=== PATIENT | male | born 1985 | race Caucasian/White ===

== ENCOUNTER 2016-06-24 19:17 | Emergency (ER) | payer MEDICAID ==
[~2016-06-24] VITALS: Ht 185.4 cm; Wt 78.0 kg
[~2016-06-24 19:17] MED LIST: AMOX500T PO; DIFL500T PO; Z.0.NO CURRENT MEDS
[2016-06-24 19:39] VITALS: BP 139/72; PULSE 79; RESP 16; TEMP 98.8; O2SAT 97
--- NOTE | 2016-06-24 19:41 | PD ---
HPI Chief Complaint: Psychiatric Symptoms Time Seen by Provider: 19:28 Travel History International Travel<30 days: No Contact w/Intl Traveler<30days: No Traveled to known affect area: No History of Present Illness HPI 30-year-old male was Syed acted and brought in for evaluation. Patient was threatening suicidal to his via text this afternoon. Patient states that he did it in anger. Patient states that he did not mean to threaten suicide. Patient denies any depression. Patient denies headache. Patient denies any chest pain or shortness of breath. Patient denies abdominal pain. Patient denies any nausea vomiting diarrhea. Patient denies any fever chills. Patient has history of abuse of Dilaudid IV. Last IV Dilaudid was 3 hours prior coming to the emergency room. Patient denies any other drugs or alcohol abuse. PFSH Past Medical History Depression: Yes Diminished Hearing: No Headaches: Yes (URIBE WITH BLURRED VISION) Past Surgical History Surgical History: No Previous Surgery Neurologic Surgery: Yes (LT UPPER EXTREMITY NERVE REPAIR) Social History Alcohol Use: No Tobacco Use: Yes (1PPD) Substance Use: Yes (dilaudid) Allergies-Medications (Allergen,Severity, Reaction): Coded Allergies: Codeine (Verified Allergy, Mild, 03/09/11) Reported Meds & Prescriptions Reported Meds & Active Scripts Active Dolobid (Diflunisal) 500 Mg Tab 500 Mg PO BIDPRN FOR PAIN Amoxil (Amoxicillin) 500 Mg Cap 1 Tab PO TID 10 Days Reported No Current Meds (Miscellaneous Medication) Misc Review of Systems General / Constitutional: No: Fever Eyes: No: Visual changes HENT: No: Headaches Cardiovascular: No: Chest Pain or Discomfort Respiratory: No: Shortness of Breath Gastrointestinal: No: Abdominal Pain Genitourinary: No: Dysuria Musculoskeletal: No: Pain Skin: No Rash Neurologic: No: Weakness Psychiatric: No: Depression Endocrine: No: Polydipsia Hematologic/Lymphatic: No: Easy Bruising Physical Exam Narrative GENERAL: Well-nourished, well-developed patient. SKIN: Warm and dry. HEAD: Normocephalic. EYES: No scleral icterus. No injection or drainage. NECK: Supple, trachea midline. No JVD or lymphadenopathy. CARDIOVASCULAR: Regular rate and rhythm without murmurs, gallops, or rubs. RESPIRATORY: Breath sounds equal bilaterally. No accessory muscle use. GASTROINTESTINAL: Abdomen soft, non-tender, nondistended. MUSCULOSKELETAL: No cyanosis, or edema. BACK: Nontender without obvious deformity. No CVA tenderness. Neurologic exam normal. MDM Medical Decision Making Medical Screen Exam Complete: Yes Emergency Medical Condition: Yes Differential Diagnosis Differential diagnosis including adjustment disorder, depression, suicidal. Narrative Course 40-year-old male was Syed acted and brought in after suicidal threats via test to his this afternoon. Neo Gómez MD Jun 24, 2016 19:41
[2016-06-24 21:37] LABS: AUTOMATED NEUTROPHIL # 11.6 TH/MM3 (1.8-7.7); BASOPHIL # 0.1 TH/MM3 (0-0.2); BASOPHIL % 0.6 % (0.0-2.0); EOSINOPHIL # 0.2 TH/MM3 (0-0.4); HEMATOCRIT 45.5 % (39.0-51.0); HEMO FLAGS DIFF FINAL; LYMPH % 18.1 % (9.0-44.0); MEAN CELL VOLUME 91.3 FL (80.0-100.0); MEAN CORPUSCULAR HEMOGLOBIN 32.1 PG (27.0-34.0); MEAN CORPUSCULAR HGB CONC 35.1 % (32.0-36.0); MONO % 9.4 % (0.0-8.0); NEUT % 70.9 % (16.0-70.0); PLATELET COUNT 268 TH/MM3 (150-450); RED BLOOD COUNT 4.98 MIL/MM3 (4.50-5.90); RED CELL DISTRIBUTION WIDTH 12.8 % (11.6-17.2); WHITE BLOOD COUNT 16.3 TH/MM3 (4.0-11.0)
[2016-06-24 21:59] LABS: ANION GAP 7 MEQ/L (5-15)
[2016-06-24 22:03] LABS: ALKALINE PHOSPHATASE 75 U/L (45-117); ALT (GPT) 79 U/L (12-78); AST (GOT) 38 U/L (15-37); BICARBONATE 30.5 MEQ/L (21.0-32.0); BLOOD UREA NITROGEN 13 MG/DL (7-18); CHLORIDE 100 MEQ/L (98-107); GLOMERULAR FILTRATION RATE 86 ML/MIN (>89); POTASSIUM 4.9 MEQ/L (3.5-5.1); SODIUM (NA) 137 MEQ/L (136-145); TOTAL BILIRUBIN ADULT 0.6 MG/DL (0.2-1.0)
[2016-06-24 23:41] LABS: AMPHETAMINE, URINE NEG (NEG); BARBITURATES, URINE NEG (NEG); COCAINE, URINE POS (NEG)
[2016-06-24 23:47] VITALS: BP 121/67; PULSE 95; RESP 20; TEMP 97.9; O2SAT 98
--- NOTE | 2016-06-25 00:59 | PD ---
Physical Exam Date Seen by Provider: Jun 25, 2016 Time Seen by Provider: 00:57 Data Data Last Documented VS Vital Signs Date Time Temp Pulse Resp B/P Pulse Ox O2 Delivery O2 Flow Rate FiO2 06/24/16 23:47 97.9 95 20 121/67 98 Room Air Orders Complete Blood Count With Diff (06/24/16 19:33) Comprehensive Metabolic Panel (06/24/16 19:33) Drug Screen, Random Urine (06/24/16 19:33) Alcohol (Ethanol) (06/24/16 19:33) Psych Screen (06/24/16 19:33) Labs Laboratory Tests Test 06/24/16 06/24/16 21:25 23:10 White Blood Count 16.3 TH/MM3 Red Blood Count 4.98 MIL/MM3 Hemoglobin 16.0 GM/DL Hematocrit 45.5 % Mean Corpuscular Volume 91.3 FL Mean Corpuscular Hemoglobin 32.1 PG Mean Corpuscular Hemoglobin 35.1 % Concent Red Cell Distribution Width 12.8 % Platelet Count 268 TH/MM3 Mean Platelet Volume 9.0 FL Neutrophils (%) (Auto) 70.9 % Lymphocytes (%) (Auto) 18.1 % Monocytes (%) (Auto) 9.4 % Eosinophils (%) (Auto) 1.0 % Basophils (%) (Auto) 0.6 % Neutrophils # (Auto) 11.6 TH/MM3 Lymphocytes # (Auto) 3.0 TH/MM3 Monocytes # (Auto) 1.5 TH/MM3 Eosinophils # (Auto) 0.2 TH/MM3 Basophils # (Auto) 0.1 TH/MM3 CBC Comment DIFF FINAL Differential Comment Sodium Level 137 MEQ/L Potassium Level 4.9 MEQ/L Chloride Level 100 MEQ/L Carbon Dioxide Level 30.5 MEQ/L Anion Gap 7 MEQ/L Blood Urea Nitrogen 13 MG/DL Creatinine 1.02 MG/DL Estimat Glomerular Filtration 86 ML/MIN Rate Random Glucose 79 MG/DL Calcium Level 9.4 MG/DL Total Bilirubin 0.6 MG/DL Aspartate Amino Transf 38 U/L (AST/SGOT) Alanine Aminotransferase 79 U/L (ALT/SGPT) Alkaline Phosphatase 75 U/L Total Protein 8.4 GM/DL Albumin 4.2 GM/DL Ethyl Alcohol Level LESS THAN 3 MG/DL Urine Opiates Screen POS Urine Barbiturates Screen NEG Urine Amphetamines Screen NEG Urine Benzodiazepines Screen NEG Urine Cocaine Screen POS Urine Cannabinoids Screen POS MDM Medical Record Reviewed: Yes Supervised Visit with FLORA: Yes Interpretation(s) CBC & BMP Diagram 06/24/16 21:25 Differential Diagnosis MDM: High Differential diagnoses: Schizophrenia, schizoaffective disorder, bipolar, anxiety, depression, adjustment reaction, mood disorder NOS, ODD, depressive disorder NOS, dementia, dementia with agitation, psychosis NOS, substance induced mood disorder, intermittent explosive disorder, Asperger syndrome, infection,electrolyte abnormality, malingering. Narrative Course Mental health screening discussed with the patient. Psychiatric screen ordered. The patient has been medically cleared. This is substance induced mood disorder, polysubstance abuse Diagnosis Primary Impression: Substance induced mood disorder Additional Impression: Polysubstance abuse Scripts No Active Prescriptions or Reported Meds Condition: Kalia Tiwari Jun 25, 2016 00:59
[2016-06-25 02:41] VITALS: BP 119/61; PULSE 86; RESP 16
[2016-06-25 06:27] VITALS: BP 107/53; PULSE 74; RESP 16; O2SAT 99
[2016-06-25 10:39] VITALS: BP 118/57; PULSE 83; RESP 18; O2SAT 99
--- NOTE | 2016-06-25 12:27 | PD ---
History of Present Illness Chief Complaint: Psychiatric Symptoms Time Seen by Provider: 12:15 Travel History International Travel<30 Days: No Contact w/Intl Traveler<30days: No Known affected area: No Legal Status Legal Status: Syed Act Syed Act Signed By: Krystina Green History of Present Illness: History of Present Illness 30-year-old male with no reported psychiatric history who presents on a BA Syed act initiated by YUAN. As per the report he was reported missing since June 18, 2016. He alledgedly said to his he was going to run his car into a tree as well as going to jump off a tree It is also reported that he sent text messages to his telling her he was going to overdose on pills because he was tired of living. He reports to Ed provider that has a history of IV Dilaudid abuse. As per review of EMR [place] [facility] [place] Current toxicology report is positive for opiates and cocaine. The patient was monitored in J pod with no behavioral concerns and no suicidality. This morning he is alert, oriented, calm and cooperative. speech is clear, logical and goal directed. No hallucinations, no delusions and no paranoia.He denies feeling depressed or anxious. He denies any suicidal or homicidal ideation stating " I love myself". He denies that he sent any messages to his indicating that he was going to harm himself. he has reported that he has been having marital difficulties. PFSH Past Medical History Depression: Yes Diminished Hearing: No Headaches: Yes (URIBE WITH BLURRED VISION) Past Surgical History Surgical History: No Previous Surgery Neurologic Surgery: Yes (LT UPPER EXTREMITY NERVE REPAIR) Psychiatric History Psychiatric History Hx Psychiatric Treatment: DENIED HX History of Inpatient Treatment: No Guns or firearms in home: No Social History male. Completed 11th grade. 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 Currently from his . Hx Alcohol Use: No Hx Tobacco Use: Yes (1PPD) Hx Substance Use: Yes Substance Use Type: Alcohol, Marijuana, Nicotine/Cigarettes, Heroin, Cocaine, Synth Opiates-Pain Pills Other Substances Used: IV DRUG ABUSE Hx of Substance Use Treatment: Yes Allergies-Medications (Allergen,Severity, Reaction): Coded Allergies: Tylenol (Verified Allergy, Severe, 06/24/16) Codeine (Verified Allergy, Mild, 06/24/16) pt states not allergic to codeine, just tylenol Reported Meds & Prescriptions Reported Meds & Active Scripts Active No Active Prescriptions or Reported Medications Review of Systems Except as stated in HPI: all other systems reviewed are Neg Exam Alert: Yes [place]: Person (ox4) Mood: Calm Affect: Euthymic Speech: Clear, Logical Eye Contact: Normal Memory Intact: Comment (not impaired) Hallucinations: Other (negative) Delusions: No Suicidal: Ideation (denies any) Homicidal: Ideation (denies any) Insight/Judgement Fair. 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 patient at this time is free from influence of substances and denies any suicidal or homicidal ideation, intent or plan.He does not meet criteria for BA. He is at precontemplative stage in terms of his substance use. BA will be lifted. Orders Complete Blood Count With Diff (06/24/16 19:33) Comprehensive Metabolic Panel (06/24/16 19:33) Drug Screen, Random Urine (06/24/16 19:33) Alcohol (Ethanol) (06/24/16 19:33) Psych Screen (06/24/16 19:33) Diet Regular Basic (06/25/16 Breakfast) Diet Regular Basic (06/25/16 Lunch) Results Vital Signs Date Time Temp Pulse Resp B/P Pulse Ox O2 Delivery O2 Flow Rate FiO2 06/25/16 10:39 83 18 118/57 99 06/25/16 06:27 74 16 107/53 99 06/25/16 02:41 86 16 119/61 06/24/16 23:47 97.9 95 20 121/67 98 Room Air 06/24/16 19:39 98.8 79 16 139/72 97 Laboratory Tests Test 06/24/16 06/24/16 21:25 23:10 White Blood Count 16.3 Red Blood Count 4.98 Hemoglobin 16.0 Hematocrit 45.5 Mean Corpuscular Volume 91.3 Mean Corpuscular Hemoglobin 32.1 Mean Corpuscular Hemoglobin 35.1 Concent Red Cell Distribution Width 12.8 Platelet Count 268 Mean Platelet Volume 9.0 Neutrophils (%) (Auto) 70.9 Lymphocytes (%) (Auto) 18.1 Monocytes (%) (Auto) 9.4 Eosinophils (%) (Auto) 1.0 Basophils (%) (Auto) 0.6 Neutrophils # (Auto) 11.6 Lymphocytes # (Auto) 3.0 Monocytes # (Auto) 1.5 Eosinophils # (Auto) 0.2 Basophils # (Auto) 0.1 CBC Comment DIFF FINAL Differential Comment Sodium Level 137 Potassium Level 4.9 Chloride Level 100 Carbon Dioxide Level 30.5 Anion Gap 7 Blood Urea Nitrogen 13 Creatinine 1.02 Estimat Glomerular Filtration 86 Rate Random Glucose 79 Calcium Level 9.4 Total Bilirubin 0.6 Aspartate Amino Transf 38 (AST/SGOT) Alanine Aminotransferase 79 (ALT/SGPT) Alkaline Phosphatase 75 Total Protein 8.4 Albumin 4.2 Ethyl Alcohol Level LESS THAN 3 Urine Opiates Screen POS Urine Barbiturates Screen NEG Urine Amphetamines Screen NEG Urine Benzodiazepines Screen NEG Urine Cocaine Screen POS Urine Cannabinoids Screen POS Diagnosis Primary Impression: Substance induced mood disorder Additional Impression: Polysubstance abuse Psychiatrically Cleared: Yes Prescriptions No Active Prescriptions or Reported Meds Disposition: 01 DISCHARGE HOME Condition: Stable Problem Qualifiers Julisa Obrien Jun 25, 2016 12:27
[2016-06-25 13:01] VITALS: BP_SYST 118; BP_SYST 18; BP_DIAS 57; PULSE 83; RESP 18; O2SAT 99
== END 2016-06-25 15:19 | disposition home or self-care (01) ==
LOC: NEPA 19:17 → NEPJ 06-25 15:19
DX: F19.94 Other psychoactive substance use, unspecified with psychoactive substance-induced mood disorder (principal); F14.10 Cocaine abuse, uncomplicated; F11.10 Opioid abuse, uncomplicated; F17.210 Nicotine dependence, cigarettes, uncomplicated
CPT/HCPCS: 80053; 80307; 80320; 85025; 99285